=== PATIENT | female | born 1985 | race Caucasian/White ===

== ENCOUNTER 2017-03-19 00:09 | Emergency (ER) | payer BC, MEDICAID ==
[~2017-03-19] VITALS: Ht 157.5 cm; Wt 64.5 kg
[~2017-03-19 00:09] MED LIST: PREN1TAB49
[2017-03-19 00:17] VITALS: Ht 157.5 cm; Wt 64.5 kg
[2017-03-19] MEDS ORDERED: ONDANSETRON 4 MG INJ IV STA (00:28)
[2017-03-19] MEDS ORDERED: morphine 4 MG/ML VIAL IV STA (00:28)
[2017-03-19] MEDS ORDERED: SOD CHLORIDE 0.9% 500 ML IV STA (00:28)
[2017-03-19 00:30] LABS: URINE BLOOD (Dip) POC Trace-intact (NEGATIVE)
[2017-03-19 00:55] LABS: ADD SCAN DIFF NO
[2017-03-19 01:05] LABS: BASOPHILS % 0.5 % (0.0-2.0); EOSINOPHILS # 0.1 10^3/ul (0.0-0.5); EOSINOPHILS % 1.5 % (0.0-7.0); HEMATOCRIT 37.4 % (37.0-47.0); HEMOGLOBIN 12.8 g/dl (12.0-16.0); LYMPHOCYTES # 2.8 10^3/ul (0.8-2.9); LYMPHOCYTES % 35.1 % (15.0-51.0); MEAN CORPUSCULAR HEMOGLOBIN 30.9 pg (29.0-33.0); MEAN CORPUSCULAR HGB CONC 34.2 g/dl (32.0-37.0); MEAN CORPUSCULAR VOLUME 90.3 fl (82.0-101.0); MEAN PLATELET VOLUME 11.6 fl (7.4-10.4); MONOCYTE # 0.5 10^3/ul (0.3-0.9); MONOCYTES % 6.3 % (0.0-11.0); NEUTROPHIL # 4.5 10^3/ul (1.6-7.5); NEUTROPHILS % 56.3 % (39.0-77.0); PLATELET COUNT 227 10^3/UL (140-415); RED BLOOD COUNT 4.14 10^6/ul (4.20-5.40); RED CELL DISTRIBUTION WIDTH 11.9 % (11.5-14.5); WHITE BLOOD COUNT 7.9 10^3/ul (4.8-10.8)
[2017-03-19 01:10] LABS: ADD UMIC YES; UR ASCORBIC ACID 20 mg/dL (NEGATIVE); UR BACTERIA FEW /HPF (NONE SEEN); UR BILIRUBIN (Dip) NEGATIVE (NEGATIVE); UR BLOOD (Dip) NEGATIVE (NEGATIVE); UR CLARITY CLOUDY (CLEAR); UR COLOR YELLOW (YELLOW); UR GLUCOSE (Dip) NEGATIVE (NEGATIVE); UR KETONES (Dip) TRACE mg/dL (NEGATIVE); UR LEUKOCYTE ESTERASE (Dip) 1+ Leu/ul (NEGATIVE); UR MUCUS MANY /HPF (NONE SEEN); UR NITRITE (Dip) NEGATIVE (NEGATIVE); UR RBC 4 /HPF (0-5); UR SPECIFIC GRAVITY (Dip) 1.023 (1.003-1.030); UR SQUAMOUS EPITHELIAL CELL MODERATE /HPF (FEW); UR TOTAL PROTEIN (Dip) NEGATIVE (NEGATIVE); UR UROBILINOGEN (Dip) NEGATIVE (NEGATIVE)
[2017-03-19 01:21] LABS: ALBUMIN 4.4 g/dl (3.3-4.9); ALBUMIN/GLOBULIN RATIO 1.29; BILIRUBIN,INDIRECT 0.5 mg/dl (0-1.1); BILIRUBIN,TOTAL 0.5 mg/dl (0.2-1.3); CALCIUM 9.4 mg/dl (8.4-10.2); CREATININE 0.63 mg/dl (0.44-1.00); POTASSIUM 4.1 mmol/L (3.5-5.1); TOTAL PROTEIN 7.8 g/dl (6.1-8.1)
[2017-03-19] MEDS ORDERED: OMEP20CA16 PO (02:03)
[2017-03-19] MEDS ORDERED: MV M PO (02:03)
--- NOTE | 2017-03-19 03:01 | RADRPT ---
PROCEDURE: CT abdomen and pelvis without intravenous contrast. CLINICAL INDICATION: Pain. TECHNIQUE: CT of the abdomen/pelvis was performed utilizing axial images with reconstructions in s agittal and coronal planes. The administered radiation dose is CTDI 9.6 mGy, DLP 525 mGy-cm. COMPARISON: No pertinent prior examinations were submitted for comparison. FINDINGS: Visualized Chest: The visualized lung bases are clear. Abdomen: The liver, spleen, pancreas, gallbladder,and adrenal glands are unremarkable. The kidneys are without hydronephrosis. No definite urinary calculi are seen. There is no evidence of bowel obstruction. The appendix is normal. No intra-abdominal free air is seen. There is no evidence of intra-abdominal adenopathy or free fluid. Pelvis: An IUD is noted within the uterus. The uterus and ovaries are without enlargement. There is no pelv ic adenopathy or free fluid. Osseous structures: Unremarkable. IMPRESSION: No acute findings. RPTAT: HIKT .Van Mancia MD, MD Date Time Electronically viewed and signed by .Van Mancia MD, on 03/19/2017 03:01 .T/
--- NOTE | 2017-03-19 03:17 | ERD ---
ER Documentation Chief Complaint Date/Time DATE: 03/19/17 TIME: 03:14 Chief Complaint RLQ AB PAIN WITH NAUSEA STARTED AN HOUR AGO HPI Right lower quadrant abdominal pain with nausea started an hour ago. No fevers no chills. No other current complaints. Pain is mild to moderate in intensity. No vomiting ROS All systems reviewed and are negative except as per history of present illness. Medications Home Meds Reported Medications Mv-Min/Vit C/Glut/Pallavi Ac/Hc124 ([place] TABLET CHEWABLE) 1 Each Tab.chew, PO, TAB.CHEW 03/19/17 Omeprazole* (Omeprazole*) 20 Mg Capsule.dr, 20 MG PO DAILY, #30 CAP 03/19/17 Discontinued Reported Medications Vits W-Ca,Fe,Fa(<1MG) () 1 Tab Tablet 02/20/10 Allergies Allergies: Coded Allergies: No Known Drug Allergy (Unverified Allergy, Unknown, 03/19/17) PMhx/Soc Medical and Surgical Hx: pt denies Medical Hx, pt denies Surgical Hx History of Surgery: No Anesthesia Reaction: No Hx Neurological Disorder: No Hx Respiratory Disorders: No Hx Cardiac Disorders: No Hx Psychiatric Problems: No Hx Miscellaneous Medical Probl: No Hx Alcohol Use: No Hx Substance Use: No Hx Tobacco Use: No Smoking Status: Never smoker Physical Exam Vitals Vital Signs Date Time Temp Pulse Resp B/P Pulse Ox O2 Delivery O2 Flow Rate FiO2 03/19/17 00:17 98.4 68 20 119/61 100 Physical Exam Const: [] Head: Atraumatic Eyes: Normal Conjunctiva ENT: Normal External Ears, Nose and Mouth. Neck: Full range of motion..~ No meningismus. Resp: Clear to auscultation bilaterally Cardio: Regular rate and rhythm, no murmurs Abd: Soft, non tender, non distended. Normal bowel sounds Skin: No petechiae or rashes Back: No midline or flank tenderness Ext: No cyanosis, or edema Neur: Awake and alert Psych: Normal Mood and Affect Result Diagram: 03/19/17 0045 03/19/17 0045 Results 24 hrs Laboratory Tests Test 03/19/17 00:34 03/19/17 00:40 03/19/17 00:45 Bedside Urine pH (LAB) 5.5 Bedside Urine Protein (LAB) Trace Bedside Urine Glucose (UA) Negative Bedside Urine Ketones (LAB) Negative Bedside Urine Blood Trace-intact Bedside Urine Nitrite (LAB) Negative Bedside Urine Leukocyte Esterase (L Negative Urine Color YELLOW Urine Clarity CLOUDY Urine pH 5.0 Urine Specific [place] 1.023 Urine Ketones TRACEmg/dL Urine Nitrite NEGATIVEmg/dL Urine Bilirubin NEGATIVEmg/dL Urine Urobilinogen NEGATIVEmg/dL Urine Leukocyte Esterase 1+Faina/ul Urine Microscopic RBC 4/HPF Urine Microscopic WBC 14/HPF Urine Squamous Epithelial Cells MODERATE/HPF Urine Bacteria FEW/HPF Urine Mucus MANY/HPF Urine Hemoglobin NEGATIVEmg/dL Urine Glucose NEGATIVEmg/dL Urine Total Protein NEGATIVEmg/dl White Blood Count 7.910^3/ul Red Blood Count 4.1410^6/ul Hemoglobin 12.8g/dl Hematocrit 37.4% Mean Corpuscular Volume 90.3fl Mean Corpuscular Hemoglobin 30.9pg Mean Corpuscular Hemoglobin Concent 34.2g/dl Red Cell Distribution Width 11.9% Platelet Count 25875^3/UL Mean Platelet Volume 11.6fl Neutrophils % 56.3% Lymphocytes % 35.1% Monocytes % 6.3% Eosinophils % 1.5% Basophils % 0.5% Nucleated Red Blood Cells % 0.0/100WBC Neutrophils # 4.510^3/ul Lymphocytes # 2.810^3/ul Monocytes # 0.510^3/ul Eosinophils # 0.110^3/ul Basophils # 0.010^3/ul Nucleated Red Blood Cells # 0.010^3/ul Sodium Level 140mmol/L Potassium Level 4.1mmol/L Chloride Level 103mmol/L Carbon Dioxide Level 23mmol/L Anion Gap 18 Blood Urea Nitrogen 14mg/dl Creatinine 0.63mg/dl Glucose Level 97mg/dl Calcium Level 9.4mg/dl Total Bilirubin 0.5mg/dl Direct Bilirubin 0.00mg/dl Indirect Bilirubin 0.5mg/dl Aspartate Amino Transf (AST/SGOT) 23IU/L Alanine Aminotransferase (ALT/SGPT) 24IU/L Alkaline Phosphatase 68IU/L Total Protein 7.8g/dl Albumin 4.4g/dl Globulin 3.40g/dl Albumin/Globulin Ratio 1.29 Lipase 46U/L Current Medications Medications (Trade) Dose Ordered Sig/Miguel Angel Route PRN Reason Start Time Stop Time Status Last Admin Dose Admin Sodium Chloride (NS) 500 ml @ 500 mls/hr Q1H STAT IV 03/19/17 00:28 03/19/17 01:27 DC 03/19/17 00:42 Morphine Sulfate (morphine) 4 mg ONCE STAT IV 03/19/17 00:28 03/19/17 00:30 DC 03/19/17 00:42 Ondansetron HCl (Zofran Inj) 4 mg ONCE STAT IV 03/19/17 00:28 03/19/17 00:30 DC 03/19/17 00:41 Procedures/MDM Medical decision-makin-year-old female evidence of UTI. CT of abdomen pelvis is read as negative. At this point clinically stable for outpatient management. Patient will be discharged home. Told to follow-up here in 8 hours for serial abdominal exams. Discharge from Cipro, tramadol, Zofran Departure Diagnosis: Primary Impression: Abdominal pain Abdominal location: unspecified location Qualified Code: R10.9 - Abdominal pain, unspecified location Condition: Stable DEN TURPIN Mar 19, 2017 03:16
[2017-03-19] MEDS ORDERED: TRAM50TA2 PO (03:21)
[2017-03-19] MEDS ORDERED: CIPR500T4 PO (03:21)
[2017-03-19] MEDS ORDERED: ONDA4TAB14 PO (03:21)
== END 2017-03-19 03:33 | disposition home or self-care (01) ==
LOC: E/R 00:09
DX: R10.11 Right upper quadrant pain (principal); R11.0 Nausea
CPT/HCPCS: 36415; 74176; 80053; 81001; 83690; 85025; 96374; 96375; J2270; J2405; J7040; Z7502; 81003